=== PATIENT | male | born 1965 ===

== ENCOUNTER 2021-01-21 19:06 | Emergency (ER) | payer SELFPAY ==
[~2021-01-21] VITALS: Ht 177.8 cm; Wt 87.7 kg
--- NOTE | 2021-01-21 21:10 | NUR ---
NIL X1 FOR D/C INSTRUCTIONS
--- NOTE | 2021-01-21 21:25 | NUR ---
NIL X2 FOR D/C INSTRCUTIONS
[2021-01-21 21:41] VITALS: BP 135/75
--- NOTE | 2021-01-21 21:41 | NUR ---
Patient given discharge instructions and they have confirmed that they understand the instructions. Patient ambulatory with steady gait. NAD, all questions answered appropriately, denies additional needs at this time. No personal belongings left in room after discharge.
== END 2021-01-21 21:43 | disposition home or self-care (01) ==
LOC: ED 19:26
DX: R51.9 Headache, unspecified (principal); V49.49XA Driver injured in collision with other motor vehicles in traffic accident, initial encounter; Y93.89 Activity, other specified; Y92.89 Other specified places as the place of occurrence of the external cause; Y99.8 Other external cause status
CPT/HCPCS: 99283